=== PATIENT | female | born 2000 | race Hispanic/Latino ===

== ENCOUNTER 2021-04-30 23:44 | Emergency (ER) ==
[~2021-04-30] VITALS: Ht 152.4 cm; Wt 59.2 kg
[2021-04-30 23:45] VITALS: BP 109/61
[2021-05-01 10:56] LABS: GC DNA AMPLIFICATION NEGATIVE (NEGATIVE)
== END 2021-05-01 02:33 | disposition left against medical advice (07) ==
LOC: M ED 23:44
DX: Z53.20 Procedure and treatment not carried out because of patient's decision for unspecified reasons (principal)

== ENCOUNTER 2021-11-22 07:00 | Inpatient (IN) | payer OTHER ==
[~2021-11-22] VITALS: Ht 152.4 cm; Wt 72.0 kg
[2021-11-22] VITALS (33 sets, daily range): BP systolic 89–130; BP diastolic 54–76
[2021-11-22] MEDS ORDERED: UNIS25TA3 PO (07:36)
[2021-11-22] MEDS ORDERED: PRENTAB9 PO (07:36)
[2021-11-22] MEDS ORDERED: ONDA4TAB6 PO (07:36)
[2021-11-22] MEDS ORDERED: PROMETHAZINE 25MG/ML 1ML VIAL IV ONE (10:20)
[2021-11-22] MEDS ORDERED: BUTORPHANOL 2 MG/ML INJ (J0595) IV ONE (10:20)
[2021-11-22 11:12] LABS: HEMATOCRIT 41.6 % (36.0-47.0); MEAN CORPUSCULAR HEMOGLOBIN 32.3 pg (27.0-33.0); MEAN CORPUSCULAR HGB CONC 33.7 g/dl (32.0-36.5); MEAN CORPUSCULAR VOLUME 95.9 fl (80.0-96.0); PLATELET COUNT, AUTOMATED 284 10^3/uL (150-450); RED BLOOD COUNT 4.34 10^6/uL (4.00-5.40); WHITE BLOOD COUNT 21.3 10^3/uL (4.0-10.0)
[2021-11-22] MEDS ORDERED: LACTATED RINGER'S 1000 ML IV PRN (13:00)
[2021-11-22] MEDS ORDERED: OXYTOCIN DRIP 30 UNITS in IV 1 EA IV PRN (13:00)
[2021-11-22] MEDS ORDERED: TRANEXAMIC ACID INJection 1,000 MG in NS 100 ML IV PRN (13:00)
[2021-11-22] MEDS ORDERED: LIDOCAINE 1% MDV 20ML VIAL INFIL PRN (13:00)
[2021-11-22] MEDS ORDERED: BUTORPHANOL 2 MG/ML INJ (J0595) IV PRN (14:10)
[2021-11-22] MEDS ORDERED: PROMETHAZINE 25MG/ML 1ML VIAL IV PRN (14:10)
[2021-11-22] MEDS: LR 1,000 ML IV SCH ×2 (14:28→20:05)
[2021-11-22] MEDS ORDERED: FENTANYL 2MCG/ML ROPIVACAINE 0.2% IN 0.9% NACL 100ML IVBAG As Ordered ONE (16:54)
[2021-11-22] MEDS ORDERED: EPIDURAL/PCA KEYS XX PRN (17:00)
[2021-11-22] MEDS ORDERED: LR 500 ML IV PRN (17:00)
[2021-11-22] MEDS ORDERED: diphenhydrAMINE 50MG/ML VIAL (J1200) IV PRN (17:00)
[2021-11-22] MEDS ORDERED: NALOXONE INJ 0.4MG/1ML VIAL (J2310 PER 1MG) IV PRN (17:00)
[2021-11-22] MEDS ORDERED: ONDANSETRON 4MG 2ML VIAL IV PRN (17:00)
[2021-11-22] MEDS: ePHEDrine SULFATE 25 MG/5 ML(5MG/ML) SYRINGE IVP PRN ×3 (18:27→18:46)
[2021-11-22] MEDS: FENTANYL/ROPIVACAINE/NACL BAG 100 ML EPIDURAL SCH (18:34)
[2021-11-22] MEDS ORDERED: OXYTOCIN DRIP 30 UNITS in IV 1 EA IV SCH (19:40)
[2021-11-23] VITALS (28 sets, daily range): BP systolic 96–142; BP diastolic 52–102
[2021-11-23] MEDS ORDERED: diphenhydrAMINE 50MG/ML VIAL (J1200) IV ONE (00:55)
[2021-11-23] MEDS ORDERED: ACETAMINOPHEN 500 MG TAB PO ONE (00:55)
[2021-11-23] MEDS: LR 1,000 ML IV SCH ×2 (02:10→13:43)
[2021-11-23] MEDS: FENTANYL/ROPIVACAINE/NACL BAG 100 ML EPIDURAL SCH ×2 (02:19→18:18)
[2021-11-23] MEDS ORDERED: DIBUCAINE 1% OINTMENT 30GM TOP PRN (11:20)
[2021-11-23] MEDS ORDERED: IBUPROFEN 800 MG TAB PO PRN (11:20)
[2021-11-23] MEDS ORDERED: RHOGAM 300 MCG (1500 IU) INJ (J2790) IM SCH (11:20)
[2021-11-23] MEDS ORDERED: DOCUSATE SODIUM 100MG CAPSULE PO PRN (11:20)
[2021-11-23] MEDS ORDERED: METHYLERGONOVINE MALEATE 0.2 MG TAB PO PRN (11:20)
[2021-11-23] MEDS: AMPICILLIN SOD 2 GM in D5W MINI-BAG PLUS 100 ML IV SCH ×2 (12:02→18:05)
[2021-11-23] MEDS ORDERED: OXYTOCIN DRIP 30 UNITS in IV 1 EA IV PRN (12:35)
[2021-11-23] MEDS: PRENATAL VITAMINS CHEWABLE TABLET PO SCH (13:40)
[2021-11-23] MEDS ORDERED: GENTAMICIN IV ONE (14:00)
[2021-11-23] MEDS ORDERED: D5W IV ONE (14:00)
[2021-11-24] VITALS (7 sets, daily range): BP systolic 93–109; BP diastolic 54–68
[2021-11-24] MEDS: AMPICILLIN SOD 2 GM in D5W MINI-BAG PLUS 100 ML IV SCH ×3 (06:41)
[2021-11-24] MEDS: PRENATAL VITAMINS CHEWABLE TABLET PO SCH (08:04)
[2021-11-24 09:55] LABS: HEMATOCRIT 36.6 % (36.0-47.0); HEMOGLOBIN 12.5 g/dl (12.0-15.5); MEAN CORPUSCULAR HEMOGLOBIN 32.3 pg (27.0-33.0); MEAN CORPUSCULAR HGB CONC 34.2 g/dl (32.0-36.5); MEAN CORPUSCULAR VOLUME 94.6 fl (80.0-96.0); PLATELET COUNT, AUTOMATED 268 10^3/uL (150-450); RED BLOOD COUNT 3.87 10^6/uL (4.00-5.40); WHITE BLOOD COUNT 25.7 10^3/uL (4.0-10.0)
[2021-11-24] MEDS: ACETAMINOPHEN TAB 650MG DOSE (2X325MG) PO PRN ×2 (17:29→23:02)
[2021-11-25 02:00] VITALS: BP 91/52
[2021-11-25 06:00] VITALS: BP 94/47
[2021-11-25] MEDS: PRENATAL VITAMINS CHEWABLE TABLET PO SCH (08:06)
[2021-11-25] MEDS: ACETAMINOPHEN TAB 650MG DOSE (2X325MG) PO PRN (08:14)
[2021-11-25 08:38] LABS: BASO # 0.1 10^3/uL (0.0-0.2); BASO % 0.4 % (0.0-1.0); EOS # 0.4 10^3/uL (0.0-0.5); EOS % 2.2 % (0.0-3.0); HEMATOCRIT 38.6 % (36.0-47.0); HEMOGLOBIN 12.6 g/dl (12.0-15.5); LYMPH # 2.8 10^3/uL (1.5-5.0); LYMPH % 16.6 % (24.0-44.0); MEAN CORPUSCULAR HEMOGLOBIN 31.6 pg (27.0-33.0); MEAN CORPUSCULAR HGB CONC 32.6 g/dl (32.0-36.5); MEAN CORPUSCULAR VOLUME 96.7 fl (80.0-96.0); MONO # 0.7 10^3/uL (0.0-0.8); MONO % 4.2 % (2.0-8.0); NEUTROPHILS # 12.7 10^3/uL (1.5-8.5); NEUTROPHILS % 76.1 % (36.0-66.0); PLATELET COUNT, AUTOMATED 302 10^3/uL (150-450); RED BLOOD COUNT 3.99 10^6/uL (4.00-5.40); WHITE BLOOD COUNT 16.7 10^3/uL (4.0-10.0)
[2021-11-25] MEDS ORDERED: MEASLES,MUMPS,RUBELLA VACCINE INJ (MMR-II) (90707) SC.IMMUN ONE (09:00)
[2021-11-25 10:00] VITALS: BP 100/58
== END 2021-11-25 12:50 | disposition home or self-care (01) | DRG 805 ==
LOC: M LDO 07:00 → M LDI 12:56 → M OBS 11-23 18:00
PROVIDERS: ADMIT Registered Nurse; ATTEND Registered Nurse
PROC: 10E0XZZ Delivery of Products of Conception, External Approach (ICD-10-PCS; principal; 2021-11-23)
PROC: 0HQ9XZZ Repair Perineum Skin, External Approach (ICD-10-PCS; 2021-11-23)
DX: O77.0 Labor and delivery complicated by meconium in amniotic fluid (principal); Z37.0 Single live birth; O41.1230 Chorioamnionitis, third trimester, not applicable or unspecified; Z3A.39 39 weeks gestation of pregnancy; O76 Abnormality in fetal heart rate and rhythm complicating labor and delivery; O70.0 First degree perineal laceration during delivery